=== PATIENT | female | born 1980 | race Caucasian/White ===

== ENCOUNTER 2016-11-13 00:29 | Emergency (ER) | payer OTHER ==
[~2016-11-13] VITALS: Ht 167.6 cm; Wt 56.7 kg
--- NOTE | ~2016-11-13 | CR63 ---
[facility] RADIOLOGY TEXT RESULTS PATIENT: YOUSIF KING LOCATION: SED : 76 UNIT #: [id number] AGE: [address]: Sampson Amezcua MD SEX: F ORDER DR: [id number] [place] [id number] MR#: [id number] Acc #: [id number] NAME: YOUSIF KING : 1980 SEX: F STUDY DATE/TIME: 11/13/2016 01:24 UNIT: SED ROOM: STUDY DESCRIPTION: CR Chest 2 View Attending Physician: Sampson Amezcua M.D. Ordering Physician: Sampson Amezcua M.D. Primary Care Physician: Generic Doctor Not In System MEDICAL IMAGING REPORT This report is preliminary unless electronic signature is present. EXAM Chest x-ray 11/13 at 01:24 INDICATION Shortness of air, chest pain and lower extremity swelling for 2 days. COMPARISON 12/06/2013. FINDINGS PA and lateral examination of the chest upright shows a good expansion of the parenchyma with a normal distribution of the pulmonary vascularity. There is no indication of congestion, effusion, infiltrate, tumor, or nodular density. The pleural reflections and diaphragmatic contours are normal. The cardiac silhouette and mediastinal anatomy is within normal limits. IMPRESSION Normal chest. Dictated by... Td Lovett Jr., M.D. THIS IS AN ELECTRONICALLY VERIFIED REPORT Td Lovett Jr., M.D. at 11/14/2016 12:51 AM GENE/selena TD: 11/13/2016 07:28 JOB #: [id number] MEDICAL IMAGING REPORT [facility] RADIOLOGY TEXT RESULTS PATIENT: YOUSIF KING LOCATION: SED : 76 UNIT #: [id number] AGE: [address]: Sampson Amezcua MD SEX: F ORDER DR: Page 1 of 1
--- NOTE | ~2016-11-13 | EKG ---
PATIENT: YOUSIF KING UNIT #: [id number] Ventricular Rate: 82 BPM Atrial Rate: 82 BPM P-R Interval: 156 ms QRS Duration: 106 ms Q-T Interval: 384 ms QTC Calculation(Bezet): 448 ms P [place]: 48 degrees Calculated R [place]: 52 degrees Calculated T [place]: 60 degrees Diagnosis Line: Normal sinus rhythm Diagnosis Line: Normal ECG Diagnosis Line: When compared with ECG of 07-DEC-2013 17:12, Diagnosis Line: Premature ventricular complexes are no longer Diagnosis Line: Present Diagnosis Line: QT has lengthened Diagnosis Line: Confirmed by JEAN MOYER MD ([id number]) on 11/14/2016 Diagnosis Line: 4:37:35 PM INTERPRETING MD: COMFORT CHARLTON
[~2016-11-13 00:29] MED LIST: ACYCLOVIR PO; ALBUTEROL MININEB NEB; ALBUTEROL17 GM INH; AUGMENTIN PO; AUGMENTIN875 MG PO; BENZONATATE PO; LASIX20 MG PO; LEVAQUIN750 MG PO; LORTAB 2.5/5001 TAB PO; MEDROL4 MG/DOSE- PO; METHADONE PO; NO MEDICATIONS; PHENERGAN DM1 ML PO; SYMBICORT INH; VOLTAREN75 MG PO
[2016-11-13 01:02] LABS: BASOPHIL# 0.1 X10e3 (0-0.3); BASOPHIL% 1.1 % (0-2.5); EOSINOPHIL# 0.9 X10e3 (0-0.7); HEMATOCRIT 33.7 % (35.0-45.0); HEMOGLOBIN 11.7 gm/dL (12.0-16.0); LYMPHOCYTE% 38.2 % (17.0-45.0); MEAN CELL VOLUME 87.2 FL (83-96); MEAN CORPUSCULAR HEMOGLOBIN 30.2 PG (28-34); MEAN CORPUSCULAR HGB CONC 34.7 g/dL (30-36); MEAN PLATELET VOLUME 8.3 FL (6.5-11.5); MONOCYTE# 0.6 X10e3 (0-1.0); MONOCYTE% 7.5 % (3.0-12.0); NEUTROPHIL# 3.3 X10e3 (1.5-7.1); NEUTROPHIL% 42.2 % (40-75); PLATELET COUNT 278 X10e3 (140-420); RED BLOOD COUNT 3.87 X10e (3.90-5.30); WHITE BLOOD COUNT 7.8 X10e3 (4.0-10.5)
[2016-11-13 01:03] LABS: DIFF IND NO
[2016-11-13 01:13] LABS: ALBUMIN SERUM 3.9 g/dL (3.5-5.0); ALKALINE PHOSPHATASE 67 U/L (32-92); ALT (SGPT) 13 U/L (10-40); AST (SGOT) 19 U/L (10-42); BILIRUBIN,TOTAL 0.3 mg/dL (0.2-2.0); BLOOD UREA NITROGEN 10 mg/dL (9-23); BUN/CREATININE RATIO 14.28; CALCIUM SERUM 8.6 mg/dL (8.4-10.2); CARBON DIOXIDE 26 mmol/L (22-31); CHLORIDE 105 mmol/L (100-111); CREATININE SERUM 0.7 mg/dL (0.6-1.4); GLOM FILT RATE Estimated 109.9 mL/min (>60); GLUCOSE FASTING 109 mg/dL (70-110); POTASSIUM 3.2 mmol/L (3.5-5.1); PROTEIN TOTAL SERUM 6.7 g/dL (6.0-8.3); SODIUM 138 mmol/L (135-145)
[2016-11-13 01:14] LABS: POC - CKMB 1.3 ng/mL (0.0-7.9)
[2016-11-13 01:15] LABS: POC - MYOGLOBIN 55.2 ng/mL (0.0-169.0); POC - TROPONIN <0.05 ng/mL (<=0.05)
[2016-11-13 01:15] LABS: BILIRUBIN, DIRECT <0.1 mg/dL (0.0-0.2); BILIRUBIN,INDIRECT 0.2 mg/dL (0.0-0.9)
[2016-11-13 01:19] LABS: URINE SOURCE CLEAN CATCH
[2016-11-13 01:22] LABS: URINE APPEARANCE HAZY; URINE BILIRUBIN NEG (NEG); URINE BLOOD 2+ (NEG); URINE COLOR YELLOW; URINE GLUCOSE NEG (NORM); URINE KETONE NEG (NEG); URINE LEUKOCYTE ESTERASE 2+ (NEG); URINE NITRATE POS (NEG); URINE PH 6.5 (5-8); URINE PROTEIN TRACE (NEG); URINE UROBILINOGEN >=8.0 MG/DL (NORM)
[2016-11-13 01:23] LABS: MICRO INDICATED? YES
[2016-11-13 01:24] LABS: CULTURE INDICATED? YES; URINE BACTERIA 3+ (NEG); URINE MUCUS PRESENT; URINE SQUAMOUS EPITHELIAL CELL OCCAS /[HPF]; URINE TRANSITIONAL EPI CELLS FEW /[HPF]
[2016-11-13 01:32] LABS: AMPHETAMINE POS (NEG); BARBITURATES NEG (NEG); BENZODIAZEPINES NEG (NEG); COCAINE NEG (NEG); MARIJUANA NEG (NEG); OPIATES POS (NEG); TRICYCLIC ANTIDEPRESSANTS NEG (NEG); U METHADONE NEG (NEG)
[2016-11-15 03:11] LABS: CHLAMYDIA TRACH Not Detected (Not Detected); N GONOR Not Detected (Not Detected)
== END 2016-11-13 02:30 | disposition home or self-care (01) ==
LOC: SED 00:29
PROVIDERS: Emergency Medicine
DX: R60.0 Localized edema (principal); N39.0 Urinary tract infection, site not specified; N76.0 Acute vaginitis; F11.10 Opioid abuse, uncomplicated; F41.9 Anxiety disorder, unspecified
CPT/HCPCS: 71020; 80048; 80076; 80307; 81003; 82553; 83874; 83880; 84484; 84703; 85025; 87086; 87088; 87186; 87491; 87591; 87808; 87905; 93005; 99284